=== PATIENT | female | born 1955 | race Caucasian/White ===

== ENCOUNTER 2021-11-28 09:04 | Emergency (ER) | payer MEDICARE, OTHER ==
[2021-11-28] MEDS ORDERED: Meclizine HCl 25 MG TAB ONE (09:58)
[2021-11-28] MEDS ORDERED: Ondansetron ODT 4 MG TAB ONE (09:58)
== END 2021-11-28 10:39 | disposition home or self-care (01) ==
LOC: BURERS 09:04
DX: H81.10 Benign paroxysmal vertigo, unspecified ear (principal); R29.704 NIHSS score 4; I10 Essential (primary) hypertension; M19.90 Unspecified osteoarthritis, unspecified site
CPT/HCPCS: 99283; Q0162

== ENCOUNTER 2022-04-18 09:54 | Emergency (ER) | payer MEDICARE, OTHER | END 2022-04-18 11:02 | disposition home or self-care (01) | LOC: BURERS 09:54 | DX: R53.83 Other fatigue (principal); M79.10 Myalgia, unspecified site; Z20.822 Contact with and (suspected) exposure to COVID-19; I10 Essential (primary) hypertension | CPT/HCPCS: U0003; U0005; 99283 ==

== ENCOUNTER 2024-03-15 11:30 | Emergency (ER) | payer MEDICARE, OTHER ==
[2024-03-15] MEDS ORDERED: Iopamidol 370 76% 100 ML VIAL ONE (12:03)
[2024-03-15 12:05] LABS: #Eosinphils 0.1 thou/uL (0.0-0.7); #Lymphocytes 3.1 thou/uL (1.20-3.40); #Monocytes 0.5 thou/uL (0.11-0.59); #Neutrophils 4.4 thou/uL (1.40-6.50); %Basophils 0.5 % (0.0-1.0); %Eosinophils 0.7 % (0.0-10.0); %Monocytes 6.1 % (0.0-10.0); %Neutrophils 54.6 % (42.0-75.0); Hematocrit 55.1 % (36.0-47.0); Hemoglobin 17.9 g/dL (12.0-16.0); Mean Corpuscular HGB CONC 32.5 g/dL (32.0-36.0); Mean Corpuscular Hemoglobin 29.7 pg (27.0-31.0); Mean Corpuscular Volume 91.5 fl (78.0-98.0); Mean Platelet Volume 8.4 fL (7.4-10.4); Platelet Count 211 10x3/uL (130-400); RBC Distribution Width 14.1 % (11.5-14.5); Red Blood Cell (RBC) Count 6.02 mill/uL (4.20-5.40); White Blood Cell (WBC) Count 8.1 10x3/uL (4.8-10.8)
[2024-03-15 12:34] LABS: ALT (SGPT) 21 U/L (8-55); AST (SGOT) 25 U/L (5-34); Albumin 3.9 g/dL (3.4-4.8); Alkaline Phosphatase 71 U/L (40-110); Anion Gap 14 mmol/L (10-20); BUN (Urea Nitrogen) 11 mg/dL (9.8-20.1); Bilirubin, Total 0.6 mg/dL (0.2-1.2); Calc. Creatinine Clearance 0 mL/min (70-130); Calcium 10.3 mg/dL (7.8-10.44); Carbon Dioxide 24 mmol/L (23-31); Chloride 107 mmol/L (98-107); Estimated GFR 75; Globulin 3.2 g/dL (2.4-3.5); Glucose 154 mg/dL (80-115); Lipase 22 U/L (8-78); Protein, Total 7.1 g/dL (5.8-8.1); Sodium 141 mmol/L (136-145)
[2024-03-15 12:37] LABS: Troponin I Less than 0.010 ng/mL (< 0.028)
[2024-03-15 14:10] LABS: Troponin I Less than 0.010 ng/mL (< 0.028)
== END 2024-03-15 14:29 | disposition home or self-care (01) ==
LOC: BURERS 11:30
DX: R07.9 Chest pain, unspecified (principal); K21.9 Gastro-esophageal reflux disease without esophagitis; I10 Essential (primary) hypertension; E11.9 Type 2 diabetes mellitus without complications; Z79.899 Other long term (current) drug therapy
CPT/HCPCS: 71045; 71275; 80053; 83690; 83880; 84484; 85025; 85379; 93005; 94760; Q9967